=== PATIENT | female | born 1965 | race African-American/Black ===

== ENCOUNTER 2019-10-13 14:56 | Emergency (ER) | payer SELFPAY ==
[~2019-10-13] VITALS: Ht 162.6 cm; Wt 72.6 kg
[2019-10-13 15:07] VITALS: BP 152/82
--- NOTE | 2019-10-13 15:07 | NUR ---
ED Nurse Note: Pt walked in to ED from home c/o S/P fall. Per pt, he slipped falling forward and hit her face and forehead. Pt also c/o of pain on her third and fourth finger on the right hand. Pt unable to recall LOC. Noted with hematoma on bilateral eye and nose. No active nose bleeding. ERMD at bedside.
[2019-10-13] MEDS ORDERED: Acetaminophen 500mg (ES) tab ORAL ONE (15:15)
--- NOTE | 2019-10-13 15:17 | Emergency Room Report ---
History of Present Illness General Chief Complaint: Multiple Trauma/Fall Source: Patient Present Illness HPI Disclaimer: Please note that this report is being documented using DRAGON technology. This can lead to erroneous entry secondary to incorrect interpretation by the dictating instrument. HPI: 54-year-old female presents for evaluation after a fall last night. The patient was running water in her bathtub getting ready to shower when she slipped falling forward and presumably striking the front of her face and forehead against the other side of the tub. Cannot recall a specific loss of conscious but states she was dazed for several seconds. She remembers the entire course of the events. Noted immediate bruising around the eyes and nose as well as a nosebleed that stopped with pressure. Noted pain and stiffness in the neck and right shoulder but is able to move all extremities. She is complaining of pain over the second, third and fourth digits but still able to bend and flex. Denies numbness or tingling. Denies seizures, further loss of consciousness, vomiting, lightheadedness, visual changes. Does not take anticoagulants. No other injuries reported. Ambulatory and feeling well otherwise. PMH: Hypothyroidism PSH: Cholecystectomy Allergies: Denies Social Hx: Tobacco use Allergies: Coded Allergies: No Known Allergies (Unverified , 10/13/19) COVID-19 Screening Contact w/high risk pt: No Recent Travel to affected area: No Experienced COVID-19 symptoms?: No COVID-19 Testing performed CUSTOMER SERVICE ADVOCATE: No Patient History Now: No Review of Systems All Other Systems: negative except mentioned in HPI Physical Exam Vital Signs Date Time Temp Pulse Resp B/P (MAP) Pulse Ox O2 Delivery O2 Flow Rate FiO2 10/13/19 15:01 98.2 77 18 152/82 (105) 98 Room Air General: Awake and alert, no acute distress HEENT: Normocephalic. Bilateral periorbital ecchymosis. The bridge of the nose is deviated to the left. Palpable deformity. No septal hematoma. Tenderness over the maxilla bilaterally. EOMI. PERRLA. No hyphema, no hypopyon. No septal hematoma. No oral lacerations. Dentition is intact. No malocclusion Neck: Supple, trachea midline. Arrives without cervical collar Chest Wall: No tenderness, no deformity, no crepitus CV: RRR. S1 and S2 normal. No murmur appreciated Resp: Normal work of breathing. No cough, wheezing or crackles appreciated Abd: Soft, nontender, nondistended Skin: Intact. No abrasions, laceration or rash over the exposed skin MSK: Normal tone and bulk. No obvious deformity. Moving all extremities. Ambulating without difficulty. Tenderness palpation over the MCP J and PIPJ of the index, middle and ring finger on the right hand. No edema. No skin breakdown, no bruising. Neuro: Awake and alert. Mentating appropriately. Sensation is intact to light touch over the dermatomes of the upper and lower extremities Spine: Mild tenderness to palpation in the midline and the paraspinal regions bilaterally in the cervical spine. No obvious deformity. There is no tenderness, step-off or deformity in the thoracic or lumbosacral spine. Medical Decision Making Diagnostic Impression: Primary Impression: Degenerative joint disease of cervical spine Additional Impression: Closed fracture nasal bone ER Course 54-year-old female presents for evaluation of head and face injuries last night. Concern for fracture of the nasal bridge as well as possibly maxilla and intracranial injuries. CT of the head, face cervical spine as well as x- rays of the right hand were obtained. No intracranial bleed, mass or significant trauma was identified. No fracture or dislocation noted on the cervical spine however degenerative disc disease was seen. Patient will follow this up with her physician. CT scans of the facial bones show a comminuted displaced fracture of the nasal bone. At bedside, the patient underwent bilateral infraorbital and infratrochlear nerve blocks and nasal packing with lidocaine for analgesia. The nasal bone was then reduced at bedside with no complications. Patient noted improved alignment and improved aeration through the nose. A Sullivan splint was placed. The patient will be referred to plastic surgery and her PMD. Will be kept out of activities until recovered and cleared to return by her PMD. Discussed reasons to return to the emergency department. She understands and agrees with this treatment plan. Other X-Ray Diagnostic Results Other X-Ray Diagnostic Results : X-Ray ordered: Right hand # of Views/Limited Vs Complete: Complete Indication: Pain EP Interpretation: Yes Interpretation: no dislocation, no soft tissue swelling, no fractures Impression: No acute disease Electronically Signed by: Electronically signed by Dr. Ryan Pope CT/MRI/US Diagnostic Results CT/MRI/US Diagnostic Results : Impression Final Report History: INJ Exam: CT HEAD Without Contrast Technique more: CTDI is 53.40 mGy and DLP is 974.20 mGy-cm. Technique more: One or more of the following dose reduction techniques were used : automated exposure control, adjustment of the mA and/or kV according to patient size, use of iterative reconstruction technique. Comparison: None available FINDINGS: No intracranial hemorrhage, mass effect or calvarial fracture. The ventricles are within limits and midline. The visualized paranasal sinuses, mastoids and orbits appear within limits. Right frontal forehead soft tissue swelling. IMPRESSION: No intracranial hemorrhage, mass effect or calvarial fracture. Radiologist: Paul Joshua M.D. Electronically Signed: 10/13/19 16:07 Study ready at 15:34 and initial results transmitted at 16:07 Final Report History: INJ Exam: CT C SPINE Without Contrast Technique more: CTDI is 6.90 mGy and DLP is 166.90 mGy-cm. Technique more: One or more of the following dose reduction techniques were used : automated exposure control, adjustment of the mA and/or kV according to patient size, use of iterative reconstruction technique. Comparison: None available FINDINGS: No fracture or malalignment. Reversal of the lordosis. No prevertebral soft tissue swelling. Spondylosis/discogenic change greatest at C5-6 with disc space narrowing, posterior disc osteophyte complexes, central and bilateral foraminal narrowing. Visualized apices appear clear. IMPRESSION: No fracture or malalignment. Reversal of the lordosis. No prevertebral soft tissue swelling. Spondylosis/discogenic change greatest at C5-6 with disc space narrowing, posterior disc osteophyte complexes, central and bilateral foraminal narrowing. Radiologist: Paul Joshua M.D. Electronically Signed: 10/13/19 16:14 Study ready at 15:41 and initial results transmitted at 16:14 Final Report History: INJ Exam: CT FACIAL Without Contrast Technique more: CTDI is 15.30 mGy and DLP is 347.60 mGy-cm. Technique more: One or more of the following dose reduction techniques were used : automated exposure control, adjustment of the mA and/or kV according to patient size, use of iterative reconstruction technique. Comparison: None available FINDINGS: Acute comminuted displaced fracture of the nasal bones involving the nasal bridge, left and right nasal bones with overlying soft tissue swelling for example axial 39 and 40. Forehead soft tissue swelling. The globes appear intact without retrobulbar stranding. The paranasal sinuses and mastoids are clear. TMJs appear normally located. No soft tissue gas. IMPRESSION: Acute comminuted displaced fracture of the nasal bones involving the nasal bridge, left and right nasal bones with overlying soft tissue swelling for example axial 39 and 40. Radiologist: Paul Joshua M.D. Electronically Signed: 10/13/19 16:22 Study ready at 15:38 and initial results transmitted at 16:22 Last Vital Signs Date Time Temp Pulse Resp B/P (MAP) Pulse Ox O2 Delivery O2 Flow Rate FiO2 10/13/19 15:07 77 18 Room Air 10/13/19 15:07 98.2 152/82 98 Disposition: HOME, SELF-CARE Condition: Improved Referrals: NOT CHOSEN [facility]/,REFERRING (PCP) Ryan Pope MD October 13, 2019 15:17
--- NOTE | 2019-10-13 15:22 | NUR ---
ED Nurse Note: Pt was taken for CT via marilyn, accompanied by a tech.
--- NOTE | 2019-10-13 15:32 | NUR ---
ED Nurse Note: Pt returned from CT, not in any distress.
--- NOTE | 2019-10-13 16:08 | Diagnostic Imaging Report ---
History: INJ Exam: CT HEAD Without Contrast Technique more: CTDI is 53.40 mGy and DLP is 974.20 mGy-cm. Technique more: One or more of the following dose reduction techniques were used: automated exposure control, adjustment of the mA and/or kV according to patient size, use of iterative reconstruction technique. Comparison: None available FINDINGS: No intracranial hemorrhage, mass effect or calvarial fracture. The ventricles are within limits and midline. The visualized paranasal sinuses, mastoids and orbits appear within limits. Right frontal forehead soft tissue swelling. IMPRESSION: No intracranial hemorrhage, mass effect or calvarial fracture.
--- NOTE | 2019-10-13 16:15 | Diagnostic Imaging Report ---
History: INJ Exam: CT C SPINE Without Contrast Technique more: CTDI is 6.90 mGy and DLP is 166.90 mGy-cm. Technique more: One or more of the following dose reduction techniques were used: automated exposure control, adjustment of the mA and/or kV according to patient size, use of iterative reconstruction technique. Comparison: None available FINDINGS: No fracture or malalignment. Reversal of the lordosis. No prevertebral soft tissue swelling. Spondylosis/discogenic change greatest at C5-6 with disc space narrowing, posterior disc osteophyte complexes, central and bilateral foraminal narrowing. Visualized apices appear clear. IMPRESSION: No fracture or malalignment. Reversal of the lordosis. No prevertebral soft tissue swelling. Spondylosis/discogenic change greatest at C5-6 with disc space narrowing, posterior disc osteophyte complexes, central and bilateral foraminal narrowing.
--- NOTE | 2019-10-13 16:17 | Diagnostic Imaging Report ---
History: INJ Exam: XR RIGHT HAND 3 views Comparison: None available FINDINGS: No fracture or dislocation. The joint spaces appear within limits. IMPRESSION: No fracture or dislocation.
--- NOTE | 2019-10-13 16:23 | Diagnostic Imaging Report ---
History: INJ Exam: CT FACIAL Without Contrast Technique more: CTDI is 15.30 mGy and DLP is 347.60 mGy-cm. Technique more: One or more of the following dose reduction techniques were used: automated exposure control, adjustment of the mA and/or kV according to patient size, use of iterative reconstruction technique. Comparison: None available FINDINGS: Acute comminuted displaced fracture of the nasal bones involving the nasal bridge, left and right nasal bones with overlying soft tissue swelling for example axial 39 and 40. Forehead soft tissue swelling. The globes appear intact without retrobulbar stranding. The paranasal sinuses and mastoids are clear. TMJs appear normally located. No soft tissue gas. IMPRESSION: Acute comminuted displaced fracture of the nasal bones involving the nasal bridge, left and right nasal bones with overlying soft tissue swelling for example axial 39 and 40.
[2019-10-13] MEDS ORDERED: Lidocaine 1% Plain 30 ml INJ ONE ×2 (16:28→16:30)
[2019-10-13 17:04] VITALS: BP 133/74
--- NOTE | 2019-10-13 17:04 | NUR ---
ED Nurse Note: Pt cleared by ERMD for discharge. DC instructions was given and explained to pt and verbalized understanding of teachings. All medical deviecs such as ID band removed. Pt is AAO x4, ambulatory and left with all personal belongings.
== END 2019-10-13 17:04 | disposition home or self-care (01) ==
LOC: EMR 15:13
DX: S02.2XXA Fracture of nasal bones, initial encounter for closed fracture (principal); M50.30 Other cervical disc degeneration, unspecified cervical region; W18.2XXA Fall in (into) shower or empty bathtub, initial encounter; Y92.9 Unspecified place or not applicable; E03.9 Hypothyroidism, unspecified; Z90.49 Acquired absence of other specified parts of digestive tract; M47.812 Spondylosis without myelopathy or radiculopathy, cervical region
CPT/HCPCS: 64400; 70450; 70486; 72125; 73130; 99284; J2001

== ENCOUNTER 2020-01-05 16:27 | Emergency (ER) | payer MEDICAID ==
[~2020-01-05] VITALS: Ht 162.6 cm; Wt 76.7 kg
[2020-01-05 16:35] VITALS: BP 144/74
[2020-01-05] MEDS ORDERED: Tetanus/Diptheria/Pertussis IM ONE (16:45)
[2020-01-05] MEDS ORDERED: Bactrim-DS 1 tab ORAL ONE (16:45)
[2020-01-05] MEDS ORDERED: Cephalexin 500mg cap ORAL ONE (16:45)
[2020-01-05] MEDS ORDERED: Bacitracin Oint UD TOPIC ONE (17:00)
--- NOTE | 2020-01-05 17:06 | Emergency Room Report ---
History of Present Illness General Chief Complaint: Pain Source: Patient Present Illness HPI 54 YO female presents to the ED c/o 12/28 in severity pain, swelling erythema and warmth that has been quickly progressive after being bitten by something yesterday. Pt. is not sure when her last tdap vaccination was. She denies fevers or chills. Pt. reports bite to outside of the right forearm, but now erythema and warmth with pain and swelling is throughout the whole forearm. PT. is right hand dominant. She denies hx of immune compromise. She has not taken anything for her symptoms. She denies blisters, vesicles or necrosis of the skin. She reports small pustule which is now oozing. She denies rashes or lesions elsewhere on the body. She denies swelling of the lips or tongue. She reports initial itching and burning. Allergies: Coded Allergies: No Known Allergies (Unverified , 10/13/19) COVID-19 Screening Contact w/high risk pt: No Recent Travel to affected area: No Experienced COVID-19 symptoms?: No COVID-19 Testing performed WINE MASTER: No Patient History Past Medical History: see triage record Past Surgical History: none Pertinent Family History: none Reviewed Nursing Documentation: PMH: Agreed; PSxH: Agreed Nursing Documentation-PMH Past Medical History: No History, Except For Review of Systems All Other Systems: negative except mentioned in HPI Physical Exam Vital Signs Date Time Temp Pulse Resp B/P (MAP) Pulse Ox O2 Delivery O2 Flow Rate FiO2 01/05/20 16:35 99.7 88 20 144/74 (97) 96 Room Air Sp02 EP Interpretation: reviewed, normal General Appearance: no apparent distress, alert, GCS 15, non-toxic Head: normocephalic, atraumatic Eyes: bilateral eye normal inspection, bilateral eye PERRL ENT: hearing grossly normal, normal voice Neck: full range of motion Respiratory: lungs clear, normal breath sounds, speaking full sentences Cardiovascular #1: regular rate, rhythm, no edema, normal capillary refill Cardiovascular #2: 2+ radial (R), 2+ radial (L) Musculoskeletal: normal range of motion, gait/station normal, tender - right forearm- no localized bony tenderness, swelling - Right forearm, erythema and warmth. Neurologic: alert, motor strength/tone normal, distal neuro normal, oriented x3 , sensory intact, responsive, speech normal, normal inspection Psychiatric: judgement/insight normal Skin: other - swelling, erythema and warmth to the lateral aspect of the right forearm. There is a draining puncture wound, no palpable fluctuance, no induration. Medical Decision Making PA Attestation Dr. Garland Is my supervising Physician whom patient management has been discussed with. Diagnostic Impression: Primary Impression: Infected insect bite of forearm Qualified Codes: S50.861A - Insect bite (nonvenomous) of right forearm, initial encounter; L08.9 - Local infection of the skin and subcutaneous tissue, unspecified; W57.XXXA - Bitten or stung by nonvenomous insect and other nonvenomous arthropods, initial encounter Additional Impression: Cellulitis of arm, right ER Course 54 YO female presents to the ED c/o 12/28 in severity pain, swelling erythema and warmth that has been quickly progressive after being bitten by something yesterday. Pt. is not sure when her last tdap vaccination was. She denies fevers or chills. Pt. reports bite to outside of the right forearm, but now erythema and warmth with pain and swelling is throughout the whole forearm. PT. is right hand dominant. She denies hx of immune compromise. She has not taken anything for her symptoms. She denies blisters, vesicles or necrosis of the skin. She reports small pustule which is now oozing. She denies rashes or lesions elsewhere on the body. She denies swelling of the lips or tongue. She reports initial itching and burning. Ddx considered but are not limited to cellulitis, scabies, insect bites, tic bites, spider bites, contact dermatitis, Drug reaction, allergic reaction, fungal infection, lice. Vital signs: are WNL, pt. is afebrile H&PE are most consistent with insect bite of the right forearm with secondary cellulitis, no palpable abscess. ORDERS: none required at this time, the diagnosis is clinical ED INTERVENTIONS: -Tdap IM - wound care/ cleaning and dressing. - Keflex and Bactrim DS PO --- Right arm Sling applied by information technology data analyst. Pt. remains neurovascularly intact. DISCHARGE: At this time pt. is stable for d/c to home. Will provide printed patient care instructions, and any necessary prescriptions. Care plan and follow up instructions have been discussed with the patient prior to discharge. Last Vital Signs Date Time Temp Pulse Resp B/P (MAP) Pulse Ox O2 Delivery O2 Flow Rate FiO2 01/05/20 16:35 99.7 88 20 144/74 (97) 96 Room Air Disposition: HOME, SELF-CARE Condition: Stable Scripts Ibuprofen* (MOTRIN*) 400 Mg Tablet 400 MG ORAL FOUR TIMES A DAY, #30 TAB 0 Refills Prov: Meghann Young 01/05/20 Trimethoprim/Sulfamethoxazole 160/800* (BACTRIM DS TABLET*) 1 Each Tablet 1 TAB ORAL DAILY for 7 Days, #14 TAB Prov: Meghann Young 01/05/20 Cephalexin* (KEFLEX*) 500 Mg Capsule 500 MG ORAL EVERY 12 HOURS for 7 Days, #14 CAP 0 Refills Prov: Meghann Young 01/05/20 Referrals: ESEQUIEL KENDRICK,REFERRING (PCP) [facility] Patient Instructions: Cellulitis, [id number], Insect Bite, [id number] Additional Instructions: Take medications as directed. Follow up with a Primary Care Provider in 3-5 days, even if your symptoms have resolved. --Please review list of primary care clinics, if you do not already have a primary care provider Return sooner to ED if new symptoms occur, or current symptoms become worse. - Please note that this Emergency Department Report was dictated using Flattrpersonal computer specialist technology software, occasionally this can lead to erroneous entry secondary to interpretation by the dictation equipment. Meghann Young Jan 05, 2020 17:06
[2020-01-05] MEDS ORDERED: CEPHALEXIN500 MG ORAL (17:07)
[2020-01-05] MEDS ORDERED: BACTRIM DS TAB1 EAC1 ORAL (17:07)
[2020-01-05] MEDS ORDERED: IBUPROFEN400 MG ORAL (17:07)
[2020-01-05 17:18] VITALS: BP 135/81
== END 2020-01-05 17:25 | disposition home or self-care (01) ==
LOC: EMR 16:48
DX: S50.861A Insect bite (nonvenomous) of right forearm, initial encounter (principal); L03.113 Cellulitis of right upper limb; W57.XXXA Bitten or stung by nonvenomous insect and other nonvenomous arthropods, initial encounter; Y92.9 Unspecified place or not applicable; L08.9 Local infection of the skin and subcutaneous tissue, unspecified; Z23 Encounter for immunization
CPT/HCPCS: 90471; 90715; Z7502; 99282